=== PATIENT | male | born 1980 | race Caucasian/White ===

== ENCOUNTER 2018-08-27 16:56 | Emergency (ER) | payer MEDICAID, OTHER ==
[~2018-08-27] VITALS: Ht 172.7 cm; Wt 80.9 kg
[2018-08-27 18:14] VITALS: Ht 172.7 cm; Wt 80.9 kg
--- NOTE | 2018-08-27 18:47 | ERD ---
ER Documentation Chief Complaint Chief Complaint LEFT FLANK HPI The patient is a 37-year-old male, presenting to the ER because of left flank pain, intermittently for 1 week, worse tonight, denies similar symptoms previously, denies fever, chills, neck pain, chest pain, vomiting, dysuria, hematuria, diarrhea. He does not smoke, drinks socially, denies illicit drug Medical/surgical history: None ROS All systems reviewed and are negative except as per history of present illness. Medications Home Meds No Active Prescriptions or Reported Meds Allergies Allergies: Coded Allergies: No Known Allergy (Unverified , 08/27/18) Physical Exam Vitals Vital Signs Date Temp Pulse Resp B/P (MAP) Pulse Ox O2 O2 Flow FiO2 Time Delivery Rate 08/27/18 97.9 79 16 130/81 100 Room Air 21:10 (97) 08/27/18 70 16 128/83 100 Room Air 19:42 (98) 08/27/18 97.9 88 18 154/82 98 18:14 (106) Physical Exam Const: No acute distress. Head: Atraumatic. Eyes: Normal Conjunctiva. ENT: Normal External Ears, Nose and Mouth. Neck: Full range of motion. No meningismus. Resp: Clear to auscultation bilaterally. Cardio: Regular rate and rhythm. Abd: Soft, non distended, normal bowel sounds, mild left flank tenderness, no rigidity/rebound/CVA tenderness Skin: No petechiae or rashes. Back: No midline or flank tenderness. Ext: No cyanosis, or edema. Neur: Awake and alert. No focal deficit Psych: Normal Mood and Affect. Result Diagram: 08/27/18190108/27/181901 Results 24 hrs Laboratory Tests Test 08/27/18 19:02 08/27/18 19:07 White Blood Count 11.1 10^3/ul Red Blood Count 4.98 10^6/ul Hemoglobin 14.9 g/dl Hematocrit 45.3 % Mean Corpuscular Volume 91.0 fl Mean Corpuscular Hemoglobin 29.9 pg Mean Corpuscular Hemoglobin Concent 32.9 g/dl Red Cell Distribution Width 12.1 % Platelet Count 301 10^3/UL Mean Platelet Volume 9.9 fl Immature Granulocytes % 0.500 % Neutrophils % 73.0 % Lymphocytes % 19.4 % Monocytes % 4.4 % Eosinophils % 2.3 % Basophils % 0.4 % Nucleated Red Blood Cells % 0.0 /100WBC Immature Granulocytes # 0.050 10^3/ul Neutrophils # 8.1 10^3/ul Lymphocytes # 2.2 10^3/ul Monocytes # 0.5 10^3/ul Eosinophils # 0.3 10^3/ul Basophils # 0.0 10^3/ul Nucleated Red Blood Cells # 0.0 10^3/ul Sodium Level 142 mmol/L Potassium Level 3.7 mmol/L Chloride Level 104 mmol/L Carbon Dioxide Level 29 mmol/L Anion Gap 9 Blood Urea Nitrogen 18 mg/dl Creatinine 1.01 mg/dl Est Glomerular Filtrat Rate mL/min > 60 mL/min Glucose Level 108 mg/dl Calcium Level 9.5 mg/dl Total Bilirubin 0.4 mg/dl Direct Bilirubin 0.00 mg/dl Indirect Bilirubin 0.4 mg/dl Aspartate Amino Transf (AST/SGOT) 38 IU/L Alanine Aminotransferase (ALT/SGPT) 43 IU/L Alkaline Phosphatase 85 IU/L Total Protein 8.0 g/dl Albumin 4.6 g/dl Globulin 3.40 g/dl Albumin/Globulin Ratio 1.35 Lipase 120 U/L Bedside Urine pH (LAB) 7.0 Bedside Urine Protein (LAB) Negative Bedside Urine Glucose (UA) Negative Bedside Urine Ketones (LAB) Negative Bedside Urine Blood Negative Bedside Urine Nitrite (LAB) Negative Bedside Urine Leukocyte Esterase (L Negative Current Medications Medications Dose Sig/Anne Start Time Status Last (Trade) Ordered Route PRN Stop Time Admin Dose Reason Admin Morphine 4 mg ONCE STAT 08/27/18 DC 08/27/18 Sulfate IV 19:08 19:15 (morphine) 08/27/18 19:10 Ondansetron 4 mg ONCE STAT 08/27/18 DC 08/27/18 HCl (Zofran IV 19:08 19:15 Inj) 08/27/18 19:10 Procedures/[place] [id number] Radiology Main Line: [phone] DIAGNOSTIC IMAGING REPORT Patient: TOR SCHMITZ : 1980 Age: 37 Sex: M MR #: [id number] DOS: 08/27/18 1908 Ordering MD: CAROL VALDOVINOS MD Location: E/R Room/Bed: PROCEDURE: CT Abdomen and pelvis without contrast. CLINICAL INDICATION: Abdominal pain. TECHNIQUE: CT scan of the abdomen and pelvis was performed on a multi- detector high-resolution CT scanner. Contiguous axial images were obtained from the lung bases to the ischial tuberosities without intravenous contrast. Coronal and sagittal reformatted images were also obtained. Images were reviewed on the PACS workstation. DICOM images are available. One or more of the following dose reduction techniques were used: - Automated exposure control. - Adjustment of the mA and/or kV according to patient size. - Use of iterative reconstruction technique. Exam CTD/vol = 12.00 mGy. Total exam DLP = 705.97 mGy-cm. COMPARISON: None. FINDINGS: Evaluation of the lung bases demonstrates no pleural or parenchymal disease. Abdomen: The liver is normal in size. There is no focal mass or dilatation of the biliary tree. The gallbladder is not distended. The spleen, pancreas and bilateral adrenal glands are within normal limits. Bilateral kidneys are normal in size with no contour deforming mass identified. There is no radiopaque renal or ureteral calculus identified. There is no hydronephrosis or hydroureter. There is no retroperitoneal adenopathy. The abdominal aorta is of normal calib er. There is no abnormal bowel wall thickening or distension. There is no bowel obstruction or free air. A normal appendix is identified. There is no diverticulosis or diverticulitis. There is no ascites. Pelvis: The bladder is unremarkable. There is a small left inguinal hernia containing fat. The prostate and seminal vesicles are within normal limits. There is no significant pelvic adenopathy or free fluid. Evaluation of the osseous structures demonstrates no suspicious lytic or blastic lesion. There is mild lumbar dextroscoliosis. IMPRESSION: No acute abnormality identified within the abdomen and pelvis. Small left inguinal hernia containing fat. .Wilder Montenegro MD, MD Date Time Electronically viewed and signed by .Wilder Montenegro MD, MD on 08/27/2018 20:30 .T/ CC: CAROL VALDOVINOS MD [phone] MEDICAL MAKING DECISION: The patient is a 37-year-old male, presenting with acute abdominal pain of unclear etiology, treated with morphine 4 mg IV for pa in, Zofran 4 mg IV for nausea with good response, is stable for outpatient follow-up The differential diagnoses considered include but are not limited to cholelithiasis, cholecystitis, choledocholithiasis, cholangitis, pancreatitis, hepatitis, gastritis, peptic ulcer disease, gastric ulcer, appendicitis, cystitis, diverticulitis, partial small bowel obstruction. Departure Diagnosis: Primary Impression: Abdominal pain Condition: Good Comments The patient's blood pressure was elevated (>120/80) but appears stable without evidence of hypertension emergency or urgency. The patient was counseled about the risks of hypertension and urged to pursue outpatient monitoring and therapy within a week with their primary care physician. I discussed the findings with the patient. I advised the patient to follow-up with the primary physician in about 2-3 days, sooner if needed and return if any concern. Disclaimer: Inadvertent spelling and grammatical errors are likely due to EHR/d ictation software use and do not reflect on the overall quality of patient care. Also, please note that the electronic time recorded on this note does not necessarily reflect the actual time of the patient encounter. CAROL VALDOVINOS MD August 27, 2018 18:47
[2018-08-27] MEDS ORDERED: ONDANSETRON 4 MG INJ IV STA (19:08)
[2018-08-27] MEDS ORDERED: morphine 4 MG/ML VIAL IV STA (19:08)
[2018-08-27 21:10] VITALS: BP 130/81; PULSE 79; RESP 16
== END 2018-08-27 21:56 | disposition home or self-care (01) ==
LOC: E/R 16:56
DX: R10.9 Unspecified abdominal pain (principal)
CPT/HCPCS: 36415; 74176; 80053; 81003; 83690; 85025; 96374; 96375; J2270; J2405; Z7502